=== PATIENT | female | born 1980 | race Caucasian/White ===

== ENCOUNTER 2016-12-11 10:04 | Emergency (ER) | payer OTHER, SELFPAY ==
[2016-12-11 10:08] VITALS: RESP 16; BMI 27.4
--- NOTE | 2016-12-11 10:53 | ED PDOC ---
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 states for the past 2 months she's had intermittent suprapubic pain which radiates to her back. Pain is worsened with movement. She has been taking Motrin without relief. Denies fever, dysuria, hematuria, incontinence, N/V/D, previous abdominal surgeries, vaginal discharge, vaginal bleeding. Last BM was today and normal. Past Medical History Reviewed: Historical Data, Nursing Documentation, Vital Signs Vital Signs: Last Vital Signs Temp 98.1 F 12/11/16 10:07 Pulse 70 12/11/16 10:07 Resp 16 12/11/16 10:07 BP 131/95 H 12/11/16 10:07 Pulse Ox 99 12/11/16 10:55 - Medical History PMH: Asthma - Surgical History Surgical History: No Surg Hx - Family History Family History: States: No Known Family Hx - Home Medications Home Medications: Ambulatory Orders Medication Instructions Recorded Ibuprofen [Motrin] 600 mg PO Q8 PRN #6 tab 06/04/15 Naproxen [Naprosyn] 500 mg PO Q12H #20 tab 12/01/15 Naproxen [Naprosyn] 500 mg PO BID PRN #30 tab 12/11/16 - Allergies Allergies/Adverse Reactions: Allergies Allergy/AdvReac Type Severity Reaction Status Date / Time No Known Allergies Allergy Verified 12/01/15 09:46 Review of Systems ROS Statement: Except As Marked, All Systems Reviewed And Found Negative Genitourinary Female: Positive for: Pelvic Pain Physical Exam - Physical Exam Appears: Positive for: Well, Non-toxic, No Acute Distress Skin: Positive for: Normal Color, Warm. Negative for: Rash Eye Exam: Positive for: EOMI, Normal appearance, PERRL ENT: Positive for: Normal ENT Inspection Neck: Positive for: Normal, Painless ROM Cardiovascular/Chest: Positive for: Regular Rate, Rhythm Respiratory: Positive for: CNT, Normal Breath Sounds Gastrointestinal/Abdominal: Positive for: Normal Exam, Soft. Negative for: Tenderness, Mass Back: Positive for: Normal Inspection. Negative for: L CVA Tenderness, R CVA Tenderness, Vertebral Tenderness Neurologic/Psych: Positive for: Alert, Oriented - Laboratory Results Result Diagrams: 12/11/16 11:14 12/11/16 11:14 Urine POC: Negative Urine dip results: Positive for: Blood (trace). Negative for: Leukocyte Esterase, Nitrate, Ketones, Glucose, Bilirubin, Protein - ECG O2 Sat by Pulse Oximetry: 99 - Progress ED Course And Treament: Labs ordered. Toradol 15mg IV. Pelvic US: 3.5 cm rounded anechoic avascular structure within left ovary consistent with a cyst. Re-evaluation Time: 12:58 Condition: Re-examined, Improved Disposition - Clinical Impression Clinical Impression: Ovarian cyst - Patient ED Disposition Is Patient to be Admitted: No - Disposition Referrals: [facility] [Outside] [facility] [[facility] Disposition: Routine/Home Disposition Time: 12:58 Condition: STABLE Prescriptions: Naproxen [Naprosyn] 500 mg PO BID PRN #30 tab PRN Reason: Pain Instructions: Ovarian Cyst (ED) Print Language: ARMENIAN
[2016-12-11 11:19] LABS: BASO % 0.6 % (0.0-2.0); EOS # 0.1 K/uL (0.0-0.7); EOS % 1.7 % (0.0-4.0); HEMATOCRIT 38.3 % (34.0-47.0); LYMPH # 1.9 K/uL (1.0-4.3); LYMPH % 27.3 % (20.0-40.0); MEAN CELL VOLUME 83.9 fl (81.0-99.0); MEAN CORPUSCULAR HEMOGLOBIN 28.4 pg (27.0-31.0); MEAN CORPUSCULAR HGB CONC 33.9 g/dL (33.0-37.0); MEAN PLATELET VOLUME 8.2 fl (7.2-11.7); MONO # 0.4 K/uL (0.0-0.8); MONO % 5.6 % (0.0-10.0); NEUT # 4.5 K/uL (1.8-7.0); NEUT % 64.8 % (50.0-75.0); RED CELL DISTRIBUTION WIDTH 13.3 % (11.5-14.5); WHITE BLOOD COUNT 6.9 K/uL (4.8-10.8)
[2016-12-11 11:26] LABS: RBC URINE 5 /hpf (0-3); URINE BACTERIA RARE (<OCC); URINE BILIRUBIN NEGATIVE (NEGATIVE); URINE BLOOD NEGATIVE (NEGATIVE); URINE COLOR YELLOW (YELLOW); URINE GLUCOSE (UA) NEG (Normal); URINE KETONE NEGATIVE (NEGATIVE); URINE LEUKOCYTE ESTERASE NEG Leu/uL (Negative); URINE PROTEIN NEGATIVE (NEGATIVE); URINE UROBILINOGEN 0.2-1.0 mg/dL (0.2-1.0); WBC URINE 1 /hpf (0-5)
[2016-12-11 11:39] LABS: ALB/GLOB RATIO 1.4 (1.0-2.1); ALKALINE PHOSPHATASE 60 U/L (38-126); ALT/SGPT 23 U/L (9-52); AST/SGOT 28 U/L (14-36); BILIRUBIN,TOTAL 0.5 mg/dl (0.2-1.3); BLOOD UREA NITROGEN 9 mg/dl (7-17); CALCIUM 9.6 mg/dL (8.4-10.2); CARBON DIOXIDE 27 mmol/L (22-30); CHLORIDE 103 mmol/L (98-107); GFR AFRICAN-AMERICAN > 60; GLUCOSE,RANDOM 93 mg/dL (65-105); POTASSIUM 3.7 MMOL/L (3.6-5.0); SODIUM 142 mmol/l (132-148); TOTAL PROTEIN 8.1 G/DL (6.3-8.2)
--- NOTE | 2016-12-11 12:39 | US ---
HISTORY: pelvic pain; hx of L ovarian cyst COMPARISON: Transvaginal pelvic ultrasound performed 12/01/15 TECHNIQUE: Transabdominal pelvic ultrasound FINDINGS: UTERUS: Measures 9.4 x 2.9 x 4.5 cm. Anteverted. ENDOMETRIUM: Measures 5 mm in diameter. CERVIX: No cervical abnormality identified. RIGHT OVARY: Measures 2.8 x 1.1 x 2.3 cm. Blood flow is demonstrated. LEFT OVARY: Measures 4.8 x 3.0 x 3.1 cm. Blood flow is demonstrated. 3.5 x 2.1 x 2.2 cm rounded anechoic avascular structure suspected to reflect a cyst. FREE FLUID: No significant free fluid noted. OTHER FINDINGS: None. IMPRESSION: 3.5 cm rounded anechoic avascular structure within left ovary consistent with a cyst.
[2016-12-11 13:08] VITALS: BP 126/78; PULSE 78; TEMP 97.7; O2SAT 98
== END 2016-12-11 13:08 | disposition home or self-care (01) ==
LOC: H.ER 10:04
DX: N83.202 Unspecified ovarian cyst, left side (principal)

== ENCOUNTER 2017-02-25 14:16 | Emergency (ER) | payer OTHER ==
[2017-02-25 14:17] VITALS: BMI 27.4
[2017-02-25 14:41] VITALS: BP 134/61; PULSE 61; RESP 16; TEMP 98.4; O2SAT 97
--- NOTE | 2017-02-25 16:58 | ED PDOC ---
Upper Extremity Pain/Injury Time Seen by Provider: 02/25/17 14:57 Chief Complaint (Nursing): Upper Extremity Problem/Injury Past Medical History Vital Signs: Last Vital Signs Temp 98.4 F 02/25/17 14:37 Pulse 61 02/25/17 14:37 Resp 16 02/25/17 14:37 BP 134/61 02/25/17 14:37 Pulse Ox 97 02/25/17 14:37 - Medical History PMH: Asthma - Family History Family History: States: Unknown Family Hx - Home Medications Home Medications: Ambulatory Orders Medication Instructions Recorded Ibuprofen [Motrin] 600 mg PO Q8 PRN #6 tab 06/04/15 Naproxen [Naprosyn] 500 mg PO Q12H #20 tab 12/01/15 Naproxen [Naprosyn] 500 mg PO BID PRN #30 tab 12/11/16 - Allergies Allergies/Adverse Reactions: Allergies Allergy/AdvReac Type Severity Reaction Status Date / Time No Known Allergies Allergy Verified 12/01/15 09:46 - ECG O2 Sat by Pulse Oximetry: 97 Disposition - Clinical Impression Clinical Impression: Right wrist pain - Patient ED Disposition Is Patient to be Admitted: No Counseled Patient/Family Regarding: Studies Performed, Diagnosis - Disposition Disposition: Routine/Home Disposition Time: 16:48 Condition: GOOD Additional Instructions: Ice, elevation, motrin for pain. Instructions: Wrist Injury (ED) Print Language: IRAQI
--- NOTE | 2017-02-25 17:04 | ED PDOC ---
Upper Extremity Pain/Injury Time Seen by Provider: 02/25/17 14:57 Chief Complaint (Nursing): Upper Extremity Problem/Injury Chief Complaint (Provider): Right wrist pain x 6 days, pain radiates to the fingers History Per: Patient History/Exam Limitations: no limitations Onset/Duration Of Symptoms: Days Current Symptoms Are (Timing): Still Present Quality: Dull Additional Complaint(s): Pt closed car door on wrist. Denies numbness/tingling. States pain is radiating. Past Medical History Reviewed: Historical Data, Nursing Documentation, Vital Signs Vital Signs: Last Vital Signs Temp 98.4 F 02/25/17 14:37 Pulse 61 02/25/17 14:37 Resp 16 02/25/17 14:37 BP 134/61 02/25/17 14:37 Pulse Ox 97 02/25/17 14:37 - Medical History PMH: Asthma - Surgical History Surgical History: No Surg Hx - Family History Family History: States: Unknown Family Hx - Living Arrangements Living Arrangements: With Family - Social History Current smoker - smoking cessation education provided: No Alcohol: None Drugs: Denies - Home Medications Home Medications: Ambulatory Orders Medication Instructions Recorded Ibuprofen [Motrin] 600 mg PO Q8 PRN #6 tab 06/04/15 Naproxen [Naprosyn] 500 mg PO Q12H #20 tab 12/01/15 Naproxen [Naprosyn] 500 mg PO BID PRN #30 tab 12/11/16 - Allergies Allergies/Adverse Reactions: Allergies Allergy/AdvReac Type Severity Reaction Status Date / Time No Known Allergies Allergy Verified 12/01/15 09:46 Review of Systems ROS Statement: Except As Marked, All Systems Reviewed And Found Negative Constitutional: Negative for: Fever, Chills Musculoskeletal: Positive for: Other (Right wris ). Negative for: Neck Pain Skin: Negative for: Other Physical Exam - Reviewed Nursing Documentation Reviewed: Yes Vital Signs Reviewed: Yes - Physical Exam Appears: Positive for: Well, Non-toxic, No Acute Distress Head Exam: Positive for: ATRAUMATIC, NORMAL INSPECTION, NORMOCEPHALIC Skin: Positive for: Normal Color (No ecchymosis, no abrasions ), Warm Eye Exam: Positive for: Normal appearance ENT: Positive for: Normal ENT Inspection Neck: Positive for: Normal, Painless ROM Respiratory: Negative for: Accessory Muscle Use, Respiratory Distress Back: Positive for: Normal Inspection Extremity: Positive for: Normal ROM, Tenderness (distal ulna and radius) Neurologic/Psych: Positive for: Alert, Oriented - ECG O2 Sat by Pulse Oximetry: 97 Medical Decision Making Medical Decision Making: x-ray normal velcro wrist splint applied. Disposition - Clinical Impression Clinical Impression: Right wrist pain - Patient ED Disposition Is Patient to be Admitted: No Counseled Patient/Family Regarding: Diagnosis, Need For Followup - Disposition Disposition: Routine/Home Disposition Time: 16:48 Condition: GOOD Additional Instructions: Ice, elevation, motrin for pain. Instructions: Wrist Injury (ED) Print Language: VIETNAMESE
--- NOTE | 2017-02-26 15:32 | RAD ---
PROCEDURE: Right wrist 02/25/2017 HISTORY: right wrist pain, closed in door 6 days ago COMPARISON: No prior study available for comparison FINDINGS: BONES: Current study reveals no convincing evidence of acute displaced fracture nor dislocation. The osseous structures appear grossly intact. If symptoms persist or occult fracture suspected clinically recommend repeat radiographs in 5-10 days as most fractures should become radiographically evident this timeframe. Alternatively, MRI could be performed pain persists. JOINTS: Normal. No dislocation. SOFT TISSUES: Normal. OTHER FINDINGS: None. IMPRESSION: No definitive radiographic evidence of acute displaced fracture or dislocation. If symptoms persist or occult fracture suspected clinically consider follow-up studies as detailed above. Note this report was placed in PA review folder for followup.
== END 2017-02-25 18:29 | disposition home or self-care (01) ==
LOC: H.ER 14:16
DX: S69.91XA Unspecified injury of right wrist, hand and finger(s), initial encounter (principal); W23.0XXA Caught, crushed, jammed, or pinched between moving objects, initial encounter; Y92.89 Other specified places as the place of occurrence of the external cause

== ENCOUNTER 2017-03-30 10:24 | Emergency (ER) | payer OTHER ==
[2017-03-30 10:25] VITALS: BMI 27.4
[2017-03-30 11:34] VITALS: BP 121/67; PULSE 73; RESP 18; TEMP 98.1; O2SAT 99
--- NOTE | 2017-03-30 12:54 | ED PDOC ---
Upper Extremity Pain/Injury Time Seen by Provider: 03/30/17 12:10 Chief Complaint (Nursing): Upper Extremity Problem/Injury Chief Complaint (Provider): Upper extremity pain History Per: Patient, Family ( at bedside is translating is macedonian for patient) Onset/Duration Of Symptoms: Days (x4 weeks) Current Symptoms Are (Timing): Still Present Severity: Mild Pain Scale Rating Of: 4 Additional Complaint(s): Kajal Thomson is a 36 year old right hand dominant female who presents to the emergency department complaining of right hand pain x 4 weeks. Patient reports that a car door accidentally closed on her wrist 4 weeks ago. Patient was seen in the emergency department at that time and had x-rays of wrist which were negative. This morning she couldn't move her fingers and had worsening hand pain. Patient denies any fever, chills or more recent injury. She states she has been taking Motrin for the pain, however she didn't take any today. PMD: None provided. Past Medical History Reviewed: Historical Data, Nursing Documentation, Vital Signs Vital Signs: Last Vital Signs Temp 98.1 F 03/30/17 11:33 Pulse 73 03/30/17 11:33 Resp 18 03/30/17 11:33 BP 121/67 03/30/17 11:33 Pulse Ox 99 03/30/17 11:33 - Medical History PMH: Asthma - Family History Family History: States: No Known Family Hx - Living Arrangements Living Arrangements: With Family - Social History Current smoker - smoking cessation education provided: No Alcohol: Social Drugs: Denies - Home Medications Home Medications: Ambulatory Orders Medication Instructions Recorded Ibuprofen [Motrin] 600 mg PO Q8 PRN #6 tab 06/04/15 Naproxen [Naprosyn] 500 mg PO Q12H #20 tab 12/01/15 Naproxen [Naprosyn] 500 mg PO BID PRN #30 tab 12/11/16 Cyclobenzaprine [Cyclobenzaprine 10 mg PO TID PRN #20 tab 03/30/17 HCl] Ibuprofen [Motrin Tab] 800 mg PO Q8 PRN #20 tab 03/30/17 - Allergies Allergies/Adverse Reactions: Allergies Allergy/AdvReac Type Severity Reaction Status Date / Time No Known Allergies Allergy Verified 12/01/15 09:46 Review of Systems ROS Statement: Except As Marked, All Systems Reviewed And Found Negative Constitutional: Negative for: Fever, Chills Musculoskeletal: Positive for: Hand Pain (right hand pain) Physical Exam - Reviewed Nursing Documentation Reviewed: Yes Vital Signs Reviewed: Yes - Physical Exam Appears: Positive for: Well, Non-toxic, No Acute Distress Head Exam: Positive for: ATRAUMATIC, NORMAL INSPECTION, NORMOCEPHALIC Skin: Positive for: Normal Color, Warm, Dry Eye Exam: Positive for: Normal appearance Respiratory: Negative for: Respiratory Distress Extremity: Positive for: Normal ROM (Decreased ROM to 4th & 5th digit. Full ROM to remaining digits and full rom of wrist). Negative for: Swelling (No ecchymosis or swelling to right hand or wrist) Neurologic/Psych: Positive for: Alert, Oriented - Laboratory Results Urine POC: Negative - ECG O2 Sat by Pulse Oximetry: 99 (RA) Pulse Ox Interpretation: Normal - Other Rad Left hand x-ray X-Ray: Interpreted by Me, Viewed By Me X-Ray Interpretation: no fx, no dis Medical Decision Making Medical Decision Making: Initial Impression: 36 year old female with right hand pain Initial Plan: --Urine --Toradol 30 mg IM --Hand right 3 views [RAD] Previous records review, patient was seen on February 25 and had x-rays of the wrist at that time which were read as negative. X-ray of right hand from today is negative. 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 Scribe Attestation: Documented by Jason Townsend, acting as a scribe for Miguelina CARROLL. Provider Scribe Attestation: All medical record entries made by the Scribe were at my direction and personally dictated by me. I have reviewed the chart and agree that the record accurately reflects my personal performance of the history, physical exam, medical decision making, and the department course for this patient. I have also personally directed, reviewed, and agree with the discharge instructions and disposition. Procedures - Splinting Location: right hand and wrist Pre-Made Type: metal (metacarpal splint secured with caroline wrap) Pre-Proc Neuro Vasc Exam: normal Post-Proc Neuro Vasc Exam: normal Disposition - Clinical Impression Clinical Impression: Hand sprain - Patient ED Disposition Is Patient to be Admitted: No Counseled Patient/Family Regarding: Studies Performed, Diagnosis - Disposition Referrals: Kian Jenkins MD [Staff Provider] - [facility] [Outside] Disposition: Routine/Home Disposition Time: 13:48 Condition: STABLE Additional Instructions: Ice, rest and elevate affected area. Take prescription meds as directed as needed for pain. Follow up with clinic or orthopedist in 2-3 days. Prescriptions: Cyclobenzaprine [Cyclobenzaprine HCl] 10 mg PO TID PRN #20 tab PRN Reason: Muscle Spasm Ibuprofen [Motrin Tab] 800 mg PO Q8 PRN #20 tab PRN Reason: Pain, Moderate (4-7) Instructions: Hand Sprain (ED) Forms: [employer] (Panamanian) Print Language: YAKUT
--- NOTE | 2017-03-30 13:55 | RAD ---
PROCEDURE: Right Hand Radiographs. HISTORY: pain COMPARISON: None. FINDINGS: BONES: Normal. No fracture. No suspicious lytic or blastic changes identified. 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 JOINTS: Normal. No osteoarthritic changes. SOFT TISSUES: Normal. OTHER FINDINGS: None. IMPRESSION: Normal right hand radiographs.
== END 2017-03-30 14:07 | disposition home or self-care (01) ==
LOC: H.ER 10:24
DX: S63.91XA Sprain of unspecified part of right wrist and hand, initial encounter (principal); W22.8XXA Striking against or struck by other objects, initial encounter; Y92.89 Other specified places as the place of occurrence of the external cause
CPT/HCPCS: 73130; 81025; 96372; 99283; J1885

== ENCOUNTER 2017-07-20 09:20 | Emergency (ER) | payer OTHER ==
[2017-07-20 09:25] VITALS: BMI 27.0
[2017-07-20 09:26] VITALS: RESP 16; TEMP 98.4; O2SAT 100
[2017-07-20 10:33] LABS: BASO % 0.3 % (0.0-2.0); EOS # 0.1 K/uL (0.0-0.7); EOS % 1.4 % (0.0-4.0); HEMOGLOBIN 12.2 g/dL (12.0-16.0); LYMPH # 1.2 K/uL (1.0-4.3); LYMPH % 18.6 % (20.0-40.0); MEAN CELL VOLUME 81.9 fl (81.0-99.0); MEAN CORPUSCULAR HEMOGLOBIN 28.3 pg (27.0-31.0); MEAN CORPUSCULAR HGB CONC 34.6 g/dL (33.0-37.0); MEAN PLATELET VOLUME 7.8 fl (7.2-11.7); MONO # 0.6 K/uL (0.0-0.8); MONO % 8.7 % (0.0-10.0); NEUT # 4.7 K/uL (1.8-7.0); NRBC % 0.1 % (0.0-0.0); RBC 4.3 Mil/uL (3.80-5.20); RED CELL DISTRIBUTION WIDTH 12.9 % (11.5-14.5); WHITE BLOOD COUNT 6.6 K/uL (4.8-10.8)
--- NOTE | 2017-07-20 10:38 | ED PDOC ---
HPI: Female Pain Time Seen by Provider: 07/20/17 09:20 Chief Complaint (Nursing): Abdominal Pain Chief Complaint (Provider): Lower Abdominal Pain History Per: Patient History/Exam Limitations: no limitations Onset/Duration Of Symptoms: Days (5-7) Current Symptoms Are (Timing): Still Present Additional Complaint(s): Kajal is a 37 y/o female with no past medical history who presents to the ED c/ o one week of lower abdominal and pelvic pain associated with vaginal bleeding. Patient's LMP was June 28. She denies fever, vomiting, or urinary symptoms. PMD: None Provided Past Medical History Reviewed: Historical Data, Nursing Documentation, Vital Signs Vital Signs: Last Vital Signs Temp 98.4 F 07/20/17 09:25 Pulse 80 07/20/17 09:25 Resp 16 07/20/17 09:25 BP 139/86 07/20/17 09:25 Pulse Ox 100 07/20/17 09:25 - Medical History PMH: Asthma - Family History Family History: States: Unknown Family Hx - Home Medications Home Medications: Ambulatory Orders Medication Instructions Recorded Ibuprofen [Motrin] 600 mg PO Q8 PRN #6 tab 06/04/15 Naproxen [Naprosyn] 500 mg PO Q12H #20 tab 12/01/15 Naproxen [Naprosyn] 500 mg PO BID PRN #30 tab 12/11/16 Cyclobenzaprine [Cyclobenzaprine 10 mg PO TID PRN #20 tab 03/30/17 HCl] Ibuprofen [Motrin Tab] 800 mg PO Q8 PRN #20 tab 03/30/17 - Allergies Allergies/Adverse Reactions: Allergies Allergy/AdvReac Type Severity Reaction Status Date / Time No Known Allergies Allergy Verified 12/01/15 09:46 Review of Systems ROS Statement: Except As Marked, All Systems Reviewed And Found Negative Constitutional: Negative for: Fever Gastrointestinal: Positive for: Abdominal Pain (lower). Negative for: Vomiting Genitourinary Female: Positive for: Vaginal Bleeding, Pelvic Pain. Negative for : Dysuria, Frequency, Incontinence, Hematuria Physical Exam - Reviewed Nursing Documentation Reviewed: Yes Vital Signs Reviewed: Yes - Physical Exam Appears: Positive for: Well, Non-toxic, No Acute Distress Skin: Positive for: Normal Color, Warm, Dry Eye Exam: Positive for: Normal appearance Cardiovascular/Chest: Positive for: Regular Rate, Rhythm. Negative for: Murmur Respiratory: Positive for: Normal Breath Sounds. Negative for: Respiratory Distress Gastrointestinal/Abdominal: Positive for: Tenderness (mild pubic) Pelvic Exam: Positive for: External Exam Normal, Speculum Exam Normal, Bimanual Exam Normal, No Cerv. Motion Tender, Active Bleeding (trace blood), Other ( lizzy Yousif RN present throughout exam) Neurologic/Psych: Positive for: Alert, Oriented - Laboratory Results Result Diagrams: 07/20/17 10:25 07/20/17 10:25 - ECG O2 Sat by Pulse Oximetry: 100 (RA) Pulse Ox Interpretation: Normal Medical Decision Making Medical Decision Making: Time: 10:12 Initial Impression: Rule out menstrual period, fibroids, cysts Initial Plan: --Beta-HcG --CMP --CBC --Toradol --US Transvaginal --Urine dip negative for infection. negative Time: 11:28 FINDINGS: UTERUS: Measures 8.6 x 5.8 x 4.7 cm. Anteverted. Normal in size and appearance. Posterior lower uterine segment myometrial fibroid measuring 1.0 x 1.3 x 0.6 centimeter. ENDOMETRIUM: Prominent, measuring 24 mm in diameter. Unremarkable. CERVIX: Nabothian cysts. No cervical abnormality identified. RIGHT OVARY: Measures 2.8 x 2.6 x 1.1 cm. No solid mass. Normal flow. LEFT OVARY: Measures 4.7 x 3.7 x 2.4 cm. Cyst with lacy internal echoes measuring 2.7 x 2.6 x 1.5 No solid mass. Normal flow. FREE FLUID: No significant free fluid noted. OTHER FINDINGS: None. IMPRESSION: Hemorrhagic left ovarian cyst measuring 2.7 centimeter. Small lower uterine segment fibroid measuring up to 1.3 centimeter. Time: 13:05 --Patient stable for discharge home. Results of imaging and pain management plans were discussed Scribe Attestation: Documented by Steve Neil, acting as a scribe for Anastacio Valdovinos MD. Provider Scribe Attestation: All medical record entries made by the Scribe were at my direction and personally dictated by me. I have reviewed the chart and agree that the record accurately reflects my personal performance of the history, physical exam, medical decision making, and the department course for this patient. I have also personally directed, reviewed, and agree with the discharge instructions and disposition. 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 Instructions: Ovarian Cyst (ED), Uterine Fibroids (ED) Forms: [employer] (Chadian) Print Language: ENGLISH
[2017-07-20 10:43] LABS: ALB/GLOB RATIO 1.2 (1.0-2.1); ALBUMIN 4.1 g/dL (3.5-5.0); ALT/SGPT 23 U/L (9-52); AST/SGOT 17 U/L (14-36); BLOOD UREA NITROGEN 8 mg/dl (7-17); CALCIUM 9.5 mg/dL (8.4-10.2); GFR AFRICAN-AMERICAN > 60; GFR NON-AFRICAN AMERICAN > 60
--- NOTE | 2017-07-20 11:30 | US ---
HISTORY: pelvic pain COMPARISON: Pelvic ultrasound dated 12/11/2016. TECHNIQUE: Grayscale, color Doppler and spectral evaluation of the pelvis performed transvaginally FINDINGS: UTERUS: Measures 8.6 x 5.8 x 4.7 cm. Anteverted. Normal in size and appearance. Posterior lower uterine segment myometrial fibroid measuring 1.0 x 1.3 x 0.6 centimeter. ENDOMETRIUM: Prominent, measuring 24 mm in diameter. Unremarkable. CERVIX: Nabothian cysts. No cervical abnormality identified. RIGHT OVARY: Measures 2.8 x 2.6 x 1.1 cm. No solid mass. Normal flow. LEFT OVARY: Measures 4.7 x 3.7 x 2.4 cm. Cyst with lacy internal echoes measuring 2.7 x 2.6 x 1.5 No solid mass. Normal flow. FREE FLUID: No significant free fluid noted. OTHER FINDINGS: None. IMPRESSION: Hemorrhagic left ovarian cyst measuring 2.7 centimeter. Small lower uterine segment fibroid measuring up to 1.3 centimeter.
[2017-07-20 13:31] VITALS: BP 120/78; PULSE 69
== END 2017-07-20 12:55 | disposition home or self-care (01) ==
LOC: H.ER 09:20
DX: N83.202 Unspecified ovarian cyst, left side (principal); D25.9 Leiomyoma of uterus, unspecified; J45.909 Unspecified asthma, uncomplicated
CPT/HCPCS: 76830; 80053; 81025; 84702; 85025; 99283; J1885

== ENCOUNTER 2018-11-23 14:08 | Emergency (ER) | payer OTHER, SELFPAY ==
[2018-11-23 14:09] VITALS: BMI 27.0
--- NOTE | 2018-11-23 14:53 | ED PDOC ---
HPI: Female Pain Time Seen by Provider: 11/23/18 14:29 Chief Complaint (Nursing): Female Genitourinary History Per: Patient Onset/Duration Of Symptoms: Days (15) Current Symptoms Are (Timing): Still Present Severity: Mild Quality Of Discomfort: Cramping Alleviating Factors: None Additional Complaint(s): Mod vaginal bleeding x 15 days assoc with lower abd cramping. Had US 07/2017 which showed ovarian cyst and fibroids. Abnormal Vaginal Bleeding: Yes Past Medical History Vital Signs: Last Vital Signs Temp 98.5 F 11/23/18 14:20 Pulse 74 11/23/18 14:20 Resp 15 11/23/18 14:20 BP 128/80 11/23/18 14:20 Pulse Ox 98 11/23/18 14:20 Primary Care Provider: FAMILY PROVIDER,NO - Medical History PMH: Asthma - Family History Family History: States: Unknown Family Hx - Home Medications Home Medications: Ambulatory Orders Medication Instructions Recorded Ibuprofen [Motrin] 600 mg PO Q8 PRN #6 tab 06/04/15 Naproxen [Naprosyn] 500 mg PO Q12H #20 tab 12/01/15 Naproxen [Naprosyn] 500 mg PO BID PRN #30 tab 12/11/16 Cyclobenzaprine [Cyclobenzaprine 10 mg PO TID PRN #20 tab 03/30/17 HCl] Ibuprofen [Motrin Tab] 800 mg PO Q8 PRN #20 tab 03/30/17 Naproxen [Naprosyn] 500 mg PO Q12H #20 tab 11/23/18 - Allergies Allergies/Adverse Reactions: Allergies Allergy/AdvReac Type Severity Reaction Status Date / Time No Known Allergies Allergy Verified 11/23/18 14:24 Review of Systems Gastrointestinal: Positive for: Abdominal Pain Genitourinary Female: Positive for: Vaginal Bleeding Neurological: Negative for: Dizziness Physical Exam - Physical Exam Appears: Positive for: Non-toxic, No Acute Distress Skin: Positive for: Normal Color, Warm, DRY Gastrointestinal/Abdominal: Positive for: Bowel Sounds, Soft. Negative for: Tenderness Pelvic Exam: Positive for: External Exam Normal, Blood (mild bleeding). Negative for: Mass, Tender Adnexa - Laboratory Results Result Diagrams: 11/23/18 15:11 - ECG O2 Sat by Pulse Oximetry: 98 Disposition - Clinical Impression Clinical Impression: Ovarian cyst, Fibroid - Patient ED Disposition Is Patient to be Admitted: No Counseled Patient/Family Regarding: Studies Performed, Diagnosis, Need For Followup, Rx Given - Disposition [facility]] [facility] [Outside] Disposition: Routine/Home Disposition Time: 17:02 Condition: FAIR Prescriptions: Naproxen [Naprosyn] 500 mg PO Q12H #20 tab Instructions: Ovarian Cysts, Uterine Fibroids Forms: [employer] (Serbian) Print Language: TRINIDADIAN
[2018-11-23 15:22] LABS: BASO # 0.1 K/uL (0.0-0.2); BASO % 0.8 % (0.0-2.0); EOS # 0.1 K/uL (0.0-0.7); EOS % 1.5 % (0.0-4.0); HEMOGLOBIN 12.1 g/dL (12.0-16.0); LYMPH # 1.7 K/uL (1.0-4.3); LYMPH % 21.5 % (20.0-40.0); MEAN CELL VOLUME 81.8 fl (81.0-99.0); MEAN CORPUSCULAR HEMOGLOBIN 27.6 pg (27.0-31.0); MEAN CORPUSCULAR HGB CONC 33.7 g/dL (33.0-37.0); MEAN PLATELET VOLUME 8.4 fl (7.2-11.7); MONO # 0.4 K/uL (0.0-0.8); MONO % 5.4 % (0.0-10.0); NEUT # 5.7 K/uL (1.8-7.0); NEUT % 70.8 % (50.0-75.0); NRBC % 0.1 % (0.0-0.0); RBC 4.4 Mil/uL (3.80-5.20); RED CELL DISTRIBUTION WIDTH 13.6 % (11.5-14.5)
--- NOTE | 2018-11-23 16:57 | US ---
Date of service: 11/23/2018 HISTORY: vaginal bleeding LMP 10/12/2018 COMPARISON: Transvaginal ultrasound 07/20/2017 TECHNIQUE: Transvaginal FINDINGS: UTERUS: Measures 8.5 x 5.2 x 4.0 cm. Anteverted appearance. In the posterior lower uterine segment a 1.4 x 1.5 x 1.3 cm fibroid is seen this is not believed although measurements are slightly different-visually this appears similar. Fibroid appears intramural. ENDOMETRIUM: Measures 13 mm in diameter. Less now than before. In this age group with ongoing. This is still within normal limits. CERVIX: Few nabothian cysts present as before RIGHT OVARY: Measures 5.3 x 3.9 x 2.9 cm. No solid mass. Normal flow. Simple appearing right adnexal cyst is noted. Measuring 4.0 x 3.2 x 2.7 cm-an interval change. This could be a right ovarian simple cyst. No appreciable significant appearing right ovarian follicles are noted. A right paraovarian cyst is another consideration LEFT OVARY: Measures 2.3 x 1.6 x 1.4 cm. Cm. No solid mass. Normal flow. The previously referenced left ovarian hemorrhagic cyst is no longer labeled in the left adnexa. On this exam there is a a similar [place] sized cystic mass without significant internal echoes demonstrated on this exam. Yet this is noted or labeled in the right adnexa attributed to the right ovary FREE FLUID: No significant free fluid noted. On the current exam. OTHER FINDINGS: None. IMPRESSION: No currently labeled left adnexal or left ovarian cysts seen. Currently a similarly sized yet slightly more anechoic appearing cyst in the right adnexa either representing an interval right ovarian cyst or a right paraovarian cyst. There is flow here noted. In 4 to 6 weeks a rechecking here with transabdominal and transvaginal ultrasound scanning is advised. Other findings as above.
[2018-11-23 17:20] VITALS: BP 130/86; PULSE 69; RESP 16; TEMP 98.4; O2SAT 97
== END 2018-11-23 17:16 | disposition home or self-care (01) ==
LOC: H.ER 14:08
DX: N83.209 Unspecified ovarian cyst, unspecified side (principal); D25.9 Leiomyoma of uterus, unspecified; J45.909 Unspecified asthma, uncomplicated